=== PATIENT | female | born 1990 | race Hispanic/Latino ===

== ENCOUNTER 2018-10-21 05:20 | Emergency (ER) | payer BC, OTHER ==
[2018-10-21 05:37] VITALS: BP 142/96
[2018-10-21 06:09] LABS: Basophils % (Auto) 0.2 % (0.0-1.8); Hematocrit 39.7 % (30.3-42.9); Hemoglobin 13.8 gm/dl (10.1-14.3); Lymphocytes # (Auto) 1.1 K/mm3 (1.2-5.4); Mean Corpuscular HGB Conc 35 % (30-34); Mean Corpuscular Volume 91 fl (79-97); Monocytes # (Auto) 0.6 K/mm3 (0.0-0.8); Platelet Count 319 K/mm3 (140-440); Red Blood Count 4.39 M/mm3 (3.65-5.03); Red Cell Distribution Width 13.6 % (13.2-15.2)
[2018-10-21 06:16] LABS: Bilirubin,Urine NEG (Negative); Color,Urine Yellow (Yellow)
[2018-10-21 06:17] LABS: Blood,Urine NEG (Negative); Mucus,Urine 2+ /HPF; Urobilinogen,Urine < 2.0 mg/dL (<2.0)
[2018-10-21 06:24] LABS: BUN/Creatinine Ratio 13; Blood Urea Nitrogen 12 mg/dL (7-17); Calcium 10.1 mg/dL (8.4-10.2); Hemolysis Index 7
[2018-10-21 06:24] LABS: Benzodiazepines Screen,Urine PRESUMPTIVE NEGATIVE; Cannabinoid Screen,Urine PRESUMPTIVE NEGATIVE; Methadone Screen,Urine PRESUMPTIVE NEGATIVE; Opiate Screen,Urine PRESUMPTIVE NEGATIVE
[2018-10-21 06:41] LABS: Amphetamine Screen,Urine PRESUMPTIVE POSITIVE; Cocaine Screen,Urine PRESUMPTIVE POSITIVE
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
== END 2018-10-21 09:22 | disposition home or self-care (01) ==
LOC: ED 05:20
DX: F15.129 Other stimulant abuse with intoxication, unspecified (principal); F14.129 Cocaine abuse with intoxication, unspecified; F17.200 Nicotine dependence, unspecified, uncomplicated
CPT/HCPCS: 36415; 80048; 80307; 81001; 84703; 85025; 99283; G0480; 80320